=== PATIENT | male | born 1945 | race Caucasian/White ===

== ENCOUNTER 2017-07-04 18:10 | Inpatient (IN) | payer MEDICARE, BC ==
[~2017-07-04] VITALS: Ht 180.3 cm; Wt 99.8 kg
[2017-07-04 19:00] VITALS: BP 123/62
[2017-07-04] MEDS ORDERED: NON FORMULARY PATIENT HOME MED EA XX SCH (20:00)
[2017-07-04 20:09] VITALS: BP 123/62
[2017-07-04] MEDS ORDERED: OMEG-31 PO (20:20)
[2017-07-04] MEDS ORDERED: PHEN100C12 PO (20:20)
[2017-07-04] MEDS ORDERED: LACO100T2 PO (20:20)
[2017-07-04] MEDS ORDERED: MEMA10TA2 PO (20:20)
[2017-07-04] MEDS ORDERED: TELM40TA4 PO (20:20)
[2017-07-04] MEDS ORDERED: CYCL30DR OP (20:20)
[2017-07-04] MEDS ORDERED: ASCO-339 PO (20:20)
[2017-07-04] MEDS ORDERED: DOXY100C2 PO (20:20)
[2017-07-04] MEDS ORDERED: KEPP500 PO (20:20)
[2017-07-04] MEDS ORDERED: OMEP20CA10 PO (20:20)
[2017-07-04] MEDS ORDERED: DORZ1DRO5 OP (20:20)
[2017-07-04] MEDS ORDERED: PHENYTOIN SODIUM EXTENDED 100MG CAPSULE PO SCH (20:30)
[2017-07-05] MEDS ORDERED: OMEG-44 PO ×2 (04:20)
[2017-07-05] MEDS ORDERED: [UNRECOGNIZED DRUG - CODE] PO (04:43)
[2017-07-05] MEDS: OMEPRAZOLE 20MG CAPSULE EXTENDED RELEASE PO SCH (06:11)
[2017-07-05 06:38] LABS: BASOPHILS % 0.3 % (0.0-2.0); HEMATOCRIT. 41.9 % (42.0-52.0); HEMOGLOBIN. 14.9 g/dL (14.0-18.0); LYMPHOCYTES % 9.9 % (20.0-50.0); MEAN CORPUSCULAR HEMOGLOBIN 32.1 pg (28.0-32.0); MEAN CORPUSCULAR VOLUME 90.5 fL (80.0-94.0); MEAN PLATELET VOLUME 8.2 fl (7.4-10.4); MONOCYTES % 11.2 % (2.0-8.0); NEUTROPHILS % 75.6 % (40.0-76.0); PLATELET 254 x1000/uL (130-400); RED BLOOD CELL COUNT 4.63 mill/uL (4.7-6.1); RED CELL DISTRIBUTION WIDTH 12.9 % (11.6-14.6)
[2017-07-05 07:09] LABS: CHLORIDE 103 mEq/L (98-107)
[2017-07-05] MEDS ORDERED: LOTE5GEL OP (07:28)
[2017-07-05] MEDS ORDERED: NA PHOS,M-B/NA PHOS,DI-BA ENEMA 118ML PR NR (07:30)
[2017-07-05 07:58] LABS: CARBON DIOXIDE 26 mEq/L (21-32)
[2017-07-05 08:00] VITALS: BP 127/70
[2017-07-05] MEDS: ACETAMINOPHEN 325MG TABLET PO PRN (08:01)
[2017-07-05] MEDS ORDERED: NON FORMULARY PATIENT HOME MED EA XX SCH ×4 (09:00)
[2017-07-05] MEDS ORDERED: NA PHOS,M-B/NA PHOS,DI-BA ENEMA 118ML PR PRN (09:00)
[2017-07-05] MEDS ORDERED: FISH OIL/OMEGA-3 FATTY ACIDS 1000MG CAPSULE PO SCH (09:00)
[2017-07-05] MEDS ORDERED: DORZOLAM/TIMOLOL 2.23/0.68% OPHTH DROPS 10ML LEFTEYE SCH (09:00)
[2017-07-05] MEDS: MEMANTINE HCL 10MG TABLET PO SCH ×2 (10:05→21:09)
[2017-07-05] MEDS: ASCORBIC ACID 500 MG TABLET PO SCH (10:05)
[2017-07-05] MEDS: LACOSAMIDE 200 MG PO SCH ×2 (10:06→21:08)
[2017-07-05] MEDS: LOTEPREDNOL 0.5% OP SCH ×2 (10:06→18:00)
[2017-07-05] MEDS: FISH OIL/OMEGA-3 FATTY ACIDS 1000MG CAPSULE PO SCH ×2 (10:06→18:01)
[2017-07-05] MEDS: LEVETIRACETAM 500MG TABLET PO SCH ×2 (10:06→21:09)
[2017-07-05] MEDS: [UNRECOGNIZED DRUG - OTHER] PO SCH ×2 (10:07→21:08)
[2017-07-05] MEDS: CYCLOSPORINE 0.05% OP SCH ×2 (10:07→17:59)
[2017-07-05] MEDS: TELMISARTAN 40 MG PO SCH (10:07)
[2017-07-05] MEDS ORDERED: PNEUMOCOCCAL 23-VAL P-SAC VAC 0.5 ML IM ONE (12:30)
[2017-07-05] MEDS ORDERED: POTASSIUM CHLORIDE 20MEQ TABLET SR PO NR (12:30)
[2017-07-05] MEDS ORDERED: INFLUENZA VIRUS VACCINE 0.5ML SYR IM ONE (12:30)
[2017-07-05] MEDS ORDERED: DOCUSATE SODIUM 250MG CAPSULE PO NR (13:15)
[2017-07-05] MEDS ORDERED: ENOXAPARIN 40MG/0.4ML SYR SUBCUT NR (13:15)
[2017-07-05] MEDS ORDERED: PHENYTOIN SODIUM EXTENDED 100MG CAPSULE PO SCH (17:00)
[2017-07-05] MEDS: POTASSIUM CHLORIDE 20MEQ TABLET SR PO SCH (18:01)
[2017-07-05 19:04] LABS: CLARITY URINE CLEAR (CLEAR); COLOR URINE YELLOW (YELLOW); KETONES URINE NEGATIVE (NEGATIVE); LEUKOCYTE ESTERASE URINE NEGATIVE (NEGATIVE); NITRITE URINE NEGATIVE (NEGATIVE); OCCULT BLOOD URINE NEGATIVE (NEGATIVE); PROTEIN URINE NEGATIVE (NEGATIVE); SPECIFIC GRAVITY URINE 1.019 (1.005-1.030); UROBILINOGEN URINE 0.2 E.U./dL (0.2-1.0)
[2017-07-05 20:00] VITALS: BP 109/59
[2017-07-05] MEDS: PHENYTOIN SODIUM EXTENDED 100MG CAPSULE PO SCH (21:09)
[2017-07-05] MEDS: COSOPT OP SCH (21:48)
[2017-07-06] MEDS: POTASSIUM CHLORIDE 20MEQ TABLET SR PO SCH ×2 (06:10→18:07)
[2017-07-06] MEDS: OMEPRAZOLE 20MG CAPSULE EXTENDED RELEASE PO SCH (06:10)
[2017-07-06 06:25] LABS: BASOPHILS % 0.5 % (0.0-2.0); EOSINOPHILS % 3.1 % (0.0-5.0); HEMATOCRIT. 41.4 % (42.0-52.0); HEMOGLOBIN. 14.3 g/dL (14.0-18.0); LYMPHOCYTES % 12.4 % (20.0-50.0); MEAN CORPUSCULAR HEMOGLOBIN 31.4 pg (28.0-32.0); MEAN CORPUSCULAR VOLUME 90.8 fL (80.0-94.0); MEAN PLATELET VOLUME 7.9 fl (7.4-10.4); MONOCYTES % 10.1 % (2.0-8.0); NEUTROPHILS % 73.9 % (40.0-76.0); PLATELET 258 x1000/uL (130-400); RED BLOOD CELL COUNT 4.56 mill/uL (4.7-6.1)
[2017-07-06 08:00] VITALS: BP 124/80
[2017-07-06] MEDS: ENOXAPARIN 40MG/0.4ML SYR SUBCUT SCH (08:55)
[2017-07-06] MEDS: FISH OIL/OMEGA-3 FATTY ACIDS 1000MG CAPSULE PO SCH ×2 (08:55→18:07)
[2017-07-06] MEDS: MEMANTINE HCL 10MG TABLET PO SCH ×2 (08:56→21:26)
[2017-07-06] MEDS: LEVETIRACETAM 500MG TABLET PO SCH ×2 (08:56→21:26)
[2017-07-06] MEDS: DOCUSATE SODIUM 250MG CAPSULE PO SCH (08:56)
[2017-07-06] MEDS: COSOPT OP SCH ×2 (08:57→21:24)
[2017-07-06] MEDS: [UNRECOGNIZED DRUG - OTHER] PO SCH ×2 (08:58→21:28)
[2017-07-06] MEDS: LACOSAMIDE 200 MG PO SCH ×2 (08:59→21:28)
[2017-07-06] MEDS: LOTEPREDNOL 0.5% OP SCH (08:59)
[2017-07-06] MEDS: CYCLOSPORINE 0.05% OP SCH ×2 (08:59→18:07)
[2017-07-06] MEDS: TELMISARTAN 40 MG PO SCH (09:00)
[2017-07-06] MEDS: ASCORBIC ACID 500 MG TABLET PO SCH (09:01)
[2017-07-06 10:01] LABS: CARBON DIOXIDE 29 mEq/L (21-32); CHLORIDE 102 mEq/L (98-107)
[2017-07-06] MEDS: PHENYTOIN SODIUM EXTENDED 100MG CAPSULE PO SCH (18:07)
[2017-07-06 20:00] VITALS: BP 121/65
[2017-07-06] MEDS: LOTEMAX 0.5% OP SCH (21:34)
[2017-07-07] MEDS: OMEPRAZOLE 20MG CAPSULE EXTENDED RELEASE PO SCH (06:26)
[2017-07-07] MEDS: POTASSIUM CHLORIDE 20MEQ TABLET SR PO SCH ×2 (06:26→16:59)
[2017-07-07 08:00] VITALS: BP 135/78
[2017-07-07] MEDS: CYCLOSPORINE 0.05% OP SCH ×2 (09:08→17:02)
[2017-07-07] MEDS: COSOPT OP SCH ×2 (09:09→21:45)
[2017-07-07] MEDS: ENOXAPARIN 40MG/0.4ML SYR SUBCUT SCH (09:13)
[2017-07-07] MEDS: MEMANTINE HCL 10MG TABLET PO SCH ×2 (09:15→21:42)
[2017-07-07] MEDS: FISH OIL/OMEGA-3 FATTY ACIDS 1000MG CAPSULE PO SCH ×2 (09:15→16:59)
[2017-07-07] MEDS: ASCORBIC ACID 500 MG TABLET PO SCH (09:16)
[2017-07-07] MEDS: LACOSAMIDE 200 MG PO SCH ×2 (09:16→21:46)
[2017-07-07] MEDS: TELMISARTAN 40 MG PO SCH (09:20)
[2017-07-07] MEDS: [UNRECOGNIZED DRUG - OTHER] PO SCH ×2 (09:21→21:47)
[2017-07-07] MEDS: DOCUSATE SODIUM 250MG CAPSULE PO SCH (09:22)
[2017-07-07] MEDS: LEVETIRACETAM 500MG TABLET PO SCH ×2 (09:22→21:42)
[2017-07-07] MEDS: LOTEMAX 0.5% OP SCH ×2 (09:41→21:48)
[2017-07-07] MEDS: PHENYTOIN SODIUM EXTENDED 100MG CAPSULE PO SCH (16:59)
[2017-07-07 20:00] VITALS: BP 128/66
[2017-07-07 21:30] LABS: VITAMIN B12 SERUM 609 pg/mL (211-911)
[2017-07-08] MEDS: OMEPRAZOLE 20MG CAPSULE EXTENDED RELEASE PO SCH (05:46)
[2017-07-08] MEDS: POTASSIUM CHLORIDE 20MEQ TABLET SR PO SCH ×2 (05:47→18:21)
[2017-07-08] MEDS: ACETAMINOPHEN 325MG TABLET PO PRN (07:33)
[2017-07-08 08:00] VITALS: BP 117/72
[2017-07-08] MEDS: ASCORBIC ACID 500 MG TABLET PO SCH (09:39)
[2017-07-08] MEDS: FISH OIL/OMEGA-3 FATTY ACIDS 1000MG CAPSULE PO SCH ×2 (09:39→18:21)
[2017-07-08] MEDS: DOCUSATE SODIUM 250MG CAPSULE PO SCH (09:40)
[2017-07-08] MEDS: MEMANTINE HCL 10MG TABLET PO SCH ×2 (09:41→22:21)
[2017-07-08] MEDS: LEVETIRACETAM 500MG TABLET PO SCH ×2 (09:41→22:21)
[2017-07-08] MEDS: [UNRECOGNIZED DRUG - OTHER] PO SCH ×2 (09:41→22:20)
[2017-07-08] MEDS: TELMISARTAN 40 MG PO SCH (09:42)
[2017-07-08] MEDS: LACOSAMIDE 200 MG PO SCH ×2 (09:42→22:20)
[2017-07-08] MEDS: COSOPT OP SCH ×2 (09:43→22:19)
[2017-07-08] MEDS: ENOXAPARIN 40MG/0.4ML SYR SUBCUT SCH (09:45)
[2017-07-08] MEDS: CYCLOSPORINE 0.05% OP SCH ×2 (09:57→18:22)
[2017-07-08] MEDS: LOTEMAX 0.5% OP SCH ×2 (10:29→22:20)
[2017-07-08] MEDS: PHENYTOIN SODIUM EXTENDED 100MG CAPSULE PO SCH (18:21)
[2017-07-08 20:00] VITALS: BP 114/68
[2017-07-08] MEDS: ENOXAPARIN 30MG/0.3ML SYR SUBCUT SCH (22:24)
[2017-07-09] MEDS: POTASSIUM CHLORIDE 20MEQ TABLET SR PO SCH ×2 (06:30→17:21)
[2017-07-09] MEDS: OMEPRAZOLE 20MG CAPSULE EXTENDED RELEASE PO SCH (06:30)
[2017-07-09 08:00] VITALS: BP 108/64
[2017-07-09] MEDS: TELMISARTAN 40 MG PO SCH (08:08)
[2017-07-09] MEDS: DOCUSATE SODIUM 250MG CAPSULE PO SCH (09:06)
[2017-07-09] MEDS: ASCORBIC ACID 500 MG TABLET PO SCH (09:06)
[2017-07-09] MEDS: FISH OIL/OMEGA-3 FATTY ACIDS 1000MG CAPSULE PO SCH ×2 (09:06→16:06)
[2017-07-09] MEDS: MEMANTINE HCL 10MG TABLET PO SCH ×2 (09:06→21:52)
[2017-07-09] MEDS: LACOSAMIDE 200 MG PO SCH ×2 (09:07→21:50)
[2017-07-09] MEDS: LEVETIRACETAM 500MG TABLET PO SCH ×2 (09:07→21:52)
[2017-07-09] MEDS: [UNRECOGNIZED DRUG - OTHER] PO SCH ×2 (09:07→21:50)
[2017-07-09] MEDS: ENOXAPARIN 30MG/0.3ML SYR SUBCUT SCH ×2 (09:09→21:53)
[2017-07-09] MEDS: COSOPT OP SCH ×3 (09:10→21:49)
[2017-07-09] MEDS: CYCLOSPORINE 0.05% OP SCH ×2 (10:35→16:07)
[2017-07-09] MEDS: LOTEMAX 0.5% OP SCH ×2 (11:06→21:50)
[2017-07-09] MEDS: PHENYTOIN SODIUM EXTENDED 100MG CAPSULE PO SCH (16:06)
[2017-07-09 20:00] VITALS: BP 122/66
[2017-07-10] MEDS: POTASSIUM CHLORIDE 20MEQ TABLET SR PO SCH ×2 (06:15→17:53)
[2017-07-10] MEDS: OMEPRAZOLE 20MG CAPSULE EXTENDED RELEASE PO SCH (06:15)
[2017-07-10 08:00] VITALS: BP 108/67
[2017-07-10] MEDS: LOTEMAX 0.5% OP SCH ×2 (08:24→21:44)
[2017-07-10] MEDS: COSOPT OP SCH ×2 (08:25→21:42)
[2017-07-10] MEDS: CYCLOSPORINE 0.05% OP SCH ×2 (08:26→17:53)
[2017-07-10] MEDS: DOCUSATE SODIUM 250MG CAPSULE PO SCH (08:29)
[2017-07-10] MEDS: LEVETIRACETAM 500MG TABLET PO SCH ×2 (08:30→21:43)
[2017-07-10] MEDS: ASCORBIC ACID 500 MG TABLET PO SCH (08:30)
[2017-07-10] MEDS: [UNRECOGNIZED DRUG - OTHER] PO SCH ×2 (08:31→21:45)
[2017-07-10] MEDS: TELMISARTAN 40 MG PO SCH (08:31)
[2017-07-10] MEDS: LACOSAMIDE 200 MG PO SCH ×2 (08:32→21:45)
[2017-07-10] MEDS: ENOXAPARIN 30MG/0.3ML SYR SUBCUT SCH ×2 (08:32→21:44)
[2017-07-10] MEDS: MEMANTINE HCL 10MG TABLET PO SCH ×2 (08:35→21:43)
[2017-07-10] MEDS: FISH OIL/OMEGA-3 FATTY ACIDS 1000MG CAPSULE PO SCH ×2 (08:35→17:53)
[2017-07-10] MEDS: PHENYTOIN SODIUM EXTENDED 100MG CAPSULE PO SCH (17:53)
[2017-07-10 20:00] VITALS: BP 112/60
[2017-07-11] MEDS: OMEPRAZOLE 20MG CAPSULE EXTENDED RELEASE PO SCH (06:14)
[2017-07-11] MEDS: POTASSIUM CHLORIDE 20MEQ TABLET SR PO SCH ×2 (06:14→17:35)
[2017-07-11 08:00] VITALS: BP 131/67
[2017-07-11] MEDS: LEVETIRACETAM 500MG TABLET PO SCH ×2 (08:56→21:48)
[2017-07-11] MEDS: ASCORBIC ACID 500 MG TABLET PO SCH (08:56)
[2017-07-11] MEDS: DOCUSATE SODIUM 250MG CAPSULE PO SCH (08:56)
[2017-07-11] MEDS: MEMANTINE HCL 10MG TABLET PO SCH ×2 (08:56→21:48)
[2017-07-11] MEDS: FISH OIL/OMEGA-3 FATTY ACIDS 1000MG CAPSULE PO SCH ×2 (08:57→17:37)
[2017-07-11] MEDS: [UNRECOGNIZED DRUG - OTHER] PO SCH ×2 (08:58→21:49)
[2017-07-11] MEDS: LACOSAMIDE 200 MG PO SCH ×2 (08:58→21:49)
[2017-07-11] MEDS: COSOPT OP SCH ×2 (08:59→21:46)
[2017-07-11] MEDS: ENOXAPARIN 30MG/0.3ML SYR SUBCUT SCH ×2 (09:01→21:00)
[2017-07-11] MEDS: CYCLOSPORINE 0.05% OP SCH ×2 (09:03→17:35)
[2017-07-11] MEDS: LOTEMAX 0.5% OP SCH ×2 (09:03→21:53)
[2017-07-11] MEDS: TELMISARTAN 40 MG PO SCH (09:03)
[2017-07-11] MEDS: PHENYTOIN SODIUM EXTENDED 100MG CAPSULE PO SCH (17:37)
[2017-07-11 20:00] VITALS: BP 106/59
[2017-07-12] MEDS: POTASSIUM CHLORIDE 20MEQ TABLET SR PO SCH (06:00)
[2017-07-12] MEDS: OMEPRAZOLE 20MG CAPSULE EXTENDED RELEASE PO SCH (06:25)
[2017-07-12 07:48] LABS: CARBON DIOXIDE 30 mEq/L (21-32); CHLORIDE 103 mEq/L (98-107)
[2017-07-12] MEDS: TELMISARTAN 40 MG PO SCH (08:43)
[2017-07-12] MEDS: [UNRECOGNIZED DRUG - OTHER] PO SCH (08:43)
[2017-07-12] MEDS: LACOSAMIDE 200 MG PO SCH (08:44)
[2017-07-12] MEDS: COSOPT OP SCH (08:46)
[2017-07-12] MEDS: ENOXAPARIN 30MG/0.3ML SYR SUBCUT SCH (08:48)
[2017-07-12] MEDS: LEVETIRACETAM 500MG TABLET PO SCH (08:48)
[2017-07-12] MEDS: DOCUSATE SODIUM 250MG CAPSULE PO SCH (08:48)
[2017-07-12] MEDS: ASCORBIC ACID 500 MG TABLET PO SCH (08:48)
[2017-07-12] MEDS: FISH OIL/OMEGA-3 FATTY ACIDS 1000MG CAPSULE PO SCH (08:49)
[2017-07-12] MEDS: MEMANTINE HCL 10MG TABLET PO SCH (08:49)
[2017-07-12 08:51] VITALS: BP 112/66
[2017-07-12] MEDS: CYCLOSPORINE 0.05% OP SCH (09:10)
[2017-07-12] MEDS: LOTEMAX 0.5% OP SCH (09:55)
[2017-07-12 12:30] VITALS: BP 100/69
[2017-07-12 12:45] VITALS: BP 100/69
[2018-07-05] MEDS ORDERED: DOXYCYCLINE HYCLATE 100MG CAPSULE PO SCH (17:00)
== END 2017-07-12 13:35 | disposition home health service (06) | DRG 72 ==
PROVIDERS: ADMIT Psychiatry & Neurology Neurology; ATTEND Internal Medicine Geriatric Medicine
DX: G93.40 Encephalopathy, unspecified (principal); G62.9 Polyneuropathy, unspecified; D64.9 Anemia, unspecified; E66.01 Morbid (severe) obesity due to excess calories; S01.01XA Laceration without foreign body of scalp, initial encounter; D72.821 Monocytosis (symptomatic); H54.7 Unspecified visual loss; M21.371 Foot drop, right foot; R29.6 Repeated falls; R53.81 Other malaise; K59.00 Constipation, unspecified; K57.90 Diverticulosis of intestine, part unspecified, without perforation or abscess without bleeding; G83.11 Monoplegia of lower limb affecting right dominant side; G40.909 Epilepsy, unspecified, not intractable, without status epilepticus; F32.9 Major depressive disorder, single episode, unspecified; F03.90 Unspecified dementia, unspecified severity, without behavioral disturbance, psychotic disturbance, mood disturbance, and anxiety; E87.6 Hypokalemia; Z99.3 Dependence on wheelchair; Z68.30 Body mass index [BMI] 30.0-30.9, adult; Z79.899 Other long term (current) drug therapy; Z92.21 Personal history of antineoplastic chemotherapy
CPT/HCPCS: 36415; 73502; 74018; 80048; 80053; 80185; 81003; 82607; 83735; 84443; 85025; 87086; 90686; 90732; 92523; 93970; 97110; 97112; 97116; 97127; 97162; 97167; 97530; 97535; J1650

== ENCOUNTER → 2018-11-10 | Outpatient (CLI) | payer MEDICARE, BC ==
[~2018-11-10] MED LIST: ASCO-339 PO; CYCL30DR OP; DORZ1DRO5 OP; DOXY100C2 PO; KEPP500 PO; LACO100T2 PO; LOTE5GEL OP; MEMA10TA2 PO; OMEG-44 PO; OMEP20CA10 PO; PHEN100C12 PO; TELM40TA4 PO; [UNRECOGNIZED DRUG - CODE] PO
== END | disposition home or self-care (01) ==
LOC: CARD 08:50
PROVIDERS: ATTEND Psychiatry & Neurology Neurology
DX: G40.319 Generalized idiopathic epilepsy and epileptic syndromes, intractable, without status epilepticus (principal)

== ENCOUNTER 2022-12-24 14:46 | Inpatient (IN) | payer MEDICARE, BC ==
[~2022-12-24] VITALS: Ht 180.3 cm; Wt 81.6 kg
[~2022-12-24 14:46] MED LIST changes: +DORZ1DRO12 OP; -DORZ1DRO5 OP; -DOXY100C2 PO; +DOXY100C5 PO; -OMEP20CA10 PO; +OMEP20CA14 PO; -TELM40TA4 PO; +TELM40TA7 PO
[2022-12-24] MEDS ORDERED: LACTULOSE 20G/30ML UDC PO PRN (15:45)
[2022-12-24 16:00] VITALS: BP 133/78; PULSE 83; RESP 18; TEMP 97.4
[2022-12-24] MEDS ORDERED: OMEG100036 PO (16:58)
[2022-12-24] MEDS ORDERED: TOPI-255 PO (16:58)
[2022-12-24] MEDS ORDERED: CLON0.252 MT (16:58)
[2022-12-24] MEDS ORDERED: CALC-769 MT (16:58)
[2022-12-24] MEDS ORDERED: LACO200T2 PO (16:58)
[2022-12-24] MEDS ORDERED: CYCL30DR EACHEYE (16:58)
[2022-12-24] MEDS ORDERED: LOTE5GEL EACHEYE (16:58)
[2022-12-24] MEDS ORDERED: CHOL100036 PO (16:58)
[2022-12-24] MEDS ORDERED: MULT-1146 PO (16:58)
[2022-12-24] MEDS ORDERED: PHEN100C4 PO (16:58)
[2022-12-24] MEDS ORDERED: LEVE750T4 MT (16:58)
[2022-12-24] MEDS ORDERED: MEDICATION NOT ON FORMULARY EA (Clonazepam 1 TAB) MT PRN (17:30)
[2022-12-24] MEDS ORDERED: MEMANTINE HCL 10MG TABLET PO SCH (17:30)
[2022-12-24] MEDS ORDERED: CLONAZEPAM 0.25 MG TAB.RAPDIS PO PRN (18:30)
[2022-12-24] MEDS: TOPIRAMATE 25MG TABLET PO SCH (19:13)
[2022-12-24] MEDS ORDERED: PRIL20 PO (19:19)
[2022-12-24] MEDS ORDERED: CLON0.122 PO (19:20)
[2022-12-24] MEDS ORDERED: APIX5TAB PO (19:23)
[2022-12-24 20:00] VITALS: BP 144/78; PULSE 77; RESP 19; TEMP 97.7
[2022-12-24] MEDS ORDERED: DORZOLAM/TIMOLOL 2.23/0.68% OPHTH DROPS 10ML BOTHEYE SCH (20:00)
[2022-12-24] MEDS: PHENYTOIN SODIUM EXTENDED 100MG CAPSULE PO SCH (20:21)
[2022-12-24] MEDS: MEMANTINE HCL 10MG TABLET PO SCH (20:22)
[2022-12-24] MEDS: LEVETIRACETAM 500MG TABLET PO SCH (20:22)
[2022-12-24] MEDS: FISH OIL/OMEGA-3 FATTY ACIDS 1000MG CAPSULE PO SCH (20:23)
[2022-12-24] MEDS: LACOSAMIDE 100 MG TABLET PO SCH (21:29)
[2022-12-24 23:48] VITALS: BP 144/78; PULSE 77; RESP 19; TEMP 97.7
[2022-12-25 06:34] LABS: BASOPHILS % 0.4 % (0.0-2.0); EOSINOPHILS % 3.1 % (0.0-5.0); HEMATOCRIT. 35.2 % (42.0-52.0); HEMOGLOBIN. 12.4 g/dL (14.0-18.0); MEAN CORPUSCULAR VOLUME 93.2 fL (80.0-94.0); MEAN PLATELET VOLUME 8.1 fl (7.4-10.4); MONOCYTES % 10.9 % (2.0-8.0); NEUTROPHILS % 65.6 % (40.0-76.0); PLATELET 198 x1000/uL (130-400); RED BLOOD CELL COUNT 3.77 mill/uL (4.7-6.1); RED CELL DISTRIBUTION WIDTH 13.3 % (11.6-14.6)
[2022-12-25] MEDS: OMEPRAZOLE 20MG CAPSULE EXTENDED RELEASE PO SCH (06:55)
[2022-12-25 07:26] LABS: CHLORIDE 110 mEq/L (98-107)
[2022-12-25] MEDS ORDERED: POTASSIUM CHLORIDE 20MEQ TABLET SR PO NR (07:45)
[2022-12-25 08:00] VITALS: BP 120/63; PULSE 67; RESP 18; TEMP 97
[2022-12-25] MEDS: CHOLECALCIFEROL (D3) 1000 UNIT TABLET PO SCH (08:28)
[2022-12-25] MEDS: MEMANTINE HCL 10MG TABLET PO SCH ×2 (08:29→21:37)
[2022-12-25] MEDS: TOPIRAMATE 25MG TABLET PO SCH ×2 (08:29→21:42)
[2022-12-25] MEDS: PHENYTOIN SODIUM EXTENDED 100MG CAPSULE PO SCH ×2 (08:29→21:41)
[2022-12-25] MEDS: FISH OIL/OMEGA-3 FATTY ACIDS 1000MG CAPSULE PO SCH ×2 (08:30→21:41)
[2022-12-25] MEDS: ASCORBIC ACID 500 MG TABLET PO SCH (08:30)
[2022-12-25] MEDS: LACOSAMIDE 100 MG TABLET PO SCH ×2 (08:30→21:37)
[2022-12-25] MEDS: MULTIVITAMINS,THER W-MINERALS TABLET PO SCH (08:30)
[2022-12-25] MEDS: LOSARTAN POTASSIUM 50 MG TABLET PO SCH (08:31)
[2022-12-25] MEDS: LEVETIRACETAM 500MG TABLET PO SCH ×2 (08:31→21:37)
[2022-12-25 08:55] LABS: PHOSPHORUS 2.8 mg/dL (2.5-4.9)
[2022-12-25] MEDS ORDERED: FISH OIL PO SCH (09:00)
[2022-12-25] MEDS ORDERED: OMEGA PO SCH (09:00)
[2022-12-25] MEDS ORDERED: TELMISARTAN 40 MG PO SCH (09:00)
[2022-12-25] MEDS ORDERED: TOPIRAMATE 50 MG PO SCH (09:00)
[2022-12-25] MEDS ORDERED: [UNRECOGNIZED DRUG - OTHER] PO SCH (09:00)
[2022-12-25] MEDS ORDERED: MEDICATION NOT ON FORMULARY EA (Levetiracetam (Keppra) 2 TAB) MT SCH (09:00)
[2022-12-25] MEDS ORDERED: MEDICATION NOT ON FORMULARY EA (Cholecalciferol (Vitamin D3) (Vitamin D3) 1 CAP) PO SCH (09:00)
[2022-12-25] MEDS ORDERED: MEDICATION NOT ON FORMULARY EA (Multivitamin (Multi Vitamin Daily) 1 TAB) PO SCH (09:00)
[2022-12-25] MEDS ORDERED: MEDICATION NOT ON FORMULARY EA (Ascorbate Calcium (Vitamin C) 500 MG) PO SCH (09:00)
[2022-12-25] MEDS ORDERED: EPA PO SCH (09:00)
[2022-12-25] MEDS ORDERED: LACOSAMIDE 200 MG PO SCH (09:00)
[2022-12-25] MEDS ORDERED: DHA PO SCH (09:00)
[2022-12-25 11:38] LABS: CLARITY URINE TURBID (CLEAR); COLOR URINE YELLOW (YELLOW); KETONES URINE NEGATIVE (NEGATIVE); LEUKOCYTE ESTERASE URINE NEGATIVE (NEGATIVE); NITRITE URINE NEGATIVE (NEGATIVE); OCCULT BLOOD URINE NEGATIVE (NEGATIVE); PROTEIN URINE NEGATIVE (NEGATIVE); SPECIFIC GRAVITY URINE 1.012 (1.005-1.030); UROBILINOGEN URINE 0.2 E.U./dL (0.2-1.0)
[2022-12-25] MEDS ORDERED: *PATIENT'S OWN MEDICATION STORAGE XX SCH (15:00)
[2022-12-25] MEDS: ENOXAPARIN 40MG/0.4ML SYR SUBCUT SCH (16:00)
[2022-12-25] MEDS: EYE EMULSION EACHEYE SCH (17:00)
[2022-12-25] MEDS: RESTASIS 0.05% EACHEYE SCH (17:00)
[2022-12-25] MEDS ORDERED: APIXABAN 5 MG TABLET PO SCH (17:00)
[2022-12-25 20:10] VITALS: BP 129/67; PULSE 67; RESP 18; TEMP 98.1
[2022-12-25] MEDS: LOTEMAX 0.5% RIGHTEYE SCH (21:42)
[2022-12-26 07:02] LABS: CHLORIDE 110 mEq/L (98-107)
[2022-12-26] MEDS: OMEPRAZOLE 20MG CAPSULE EXTENDED RELEASE PO SCH ×2 (07:09→09:54)
[2022-12-26 08:00] VITALS: BP 125/80; PULSE 81; RESP 18; TEMP 97.3
[2022-12-26] MEDS: FISH OIL/OMEGA-3 FATTY ACIDS 1000MG CAPSULE PO SCH ×2 (09:53→20:58)
[2022-12-26] MEDS: LACOSAMIDE 100 MG TABLET PO SCH ×2 (09:53→20:59)
[2022-12-26] MEDS: ASCORBIC ACID 500 MG TABLET PO SCH (09:53)
[2022-12-26] MEDS: MULTIVITAMINS,THER W-MINERALS TABLET PO SCH (09:53)
[2022-12-26] MEDS: PHENYTOIN SODIUM EXTENDED 100MG CAPSULE PO SCH ×2 (09:53→20:58)
[2022-12-26] MEDS: MEMANTINE HCL 10MG TABLET PO SCH ×2 (09:53→20:58)
[2022-12-26] MEDS: TOPIRAMATE 25MG TABLET PO SCH ×2 (09:54→20:59)
[2022-12-26] MEDS: LEVETIRACETAM 500MG TABLET PO SCH ×2 (09:54→20:58)
[2022-12-26] MEDS: EYE EMULSION EACHEYE SCH ×2 (09:54→16:59)
[2022-12-26] MEDS: CHOLECALCIFEROL (D3) 1000 UNIT TABLET PO SCH (09:54)
[2022-12-26] MEDS: RESTASIS 0.05% EACHEYE SCH ×2 (09:54→16:59)
[2022-12-26] MEDS: LOSARTAN POTASSIUM 50 MG TABLET PO SCH (09:57)
[2022-12-26] MEDS: ENOXAPARIN 40MG/0.4ML SYR SUBCUT SCH (16:59)
[2022-12-26 20:00] VITALS: BP 134/52; PULSE 18; RESP 18; TEMP 96.9
[2022-12-26] MEDS: LOTEMAX 0.5% RIGHTEYE SCH (20:59)
[2022-12-26] MEDS: OXYBUTYNIN CHLORIDE 5MG TABLET PO SCH (21:04)
[2022-12-27 08:00] VITALS: BP 116/73; PULSE 64; RESP 18; TEMP 97.6
[2022-12-27] MEDS: LEVETIRACETAM 500MG TABLET PO SCH ×2 (08:04→20:58)
[2022-12-27] MEDS: FISH OIL/OMEGA-3 FATTY ACIDS 1000MG CAPSULE PO SCH ×2 (08:04→20:59)
[2022-12-27] MEDS: LOSARTAN POTASSIUM 50 MG TABLET PO SCH (08:04)
[2022-12-27] MEDS: TOPIRAMATE 25MG TABLET PO SCH ×2 (08:06→20:59)
[2022-12-27] MEDS: LACOSAMIDE 100 MG TABLET PO SCH ×2 (08:06→20:59)
[2022-12-27] MEDS: MULTIVITAMINS,THER W-MINERALS TABLET PO SCH (08:06)
[2022-12-27] MEDS: MEMANTINE HCL 10MG TABLET PO SCH ×2 (08:07→20:59)
[2022-12-27] MEDS: PHENYTOIN SODIUM EXTENDED 100MG CAPSULE PO SCH ×2 (08:07→20:59)
[2022-12-27] MEDS: EYE EMULSION EACHEYE SCH ×3 (08:08→21:03)
[2022-12-27] MEDS: RESTASIS 0.05% EACHEYE SCH ×3 (08:08→21:03)
[2022-12-27] MEDS: FAMOTIDINE 20MG TABLET PO SCH ×2 (08:35→20:59)
[2022-12-27] MEDS: CHOLECALCIFEROL (D3) 1000 UNIT TABLET PO SCH (08:35)
[2022-12-27] MEDS: ASCORBIC ACID 500 MG TABLET PO SCH (08:35)
[2022-12-27] MEDS ORDERED: CLONAZEPAM 0.25 MG PO PRN (15:00)
[2022-12-27] MEDS: ENOXAPARIN 40MG/0.4ML SYR SUBCUT SCH (16:09)
[2022-12-27 20:00] VITALS: BP 104/60; PULSE 73; RESP 18; TEMP 98.1
[2022-12-27] MEDS: OXYBUTYNIN CHLORIDE 5MG TABLET PO SCH (21:00)
[2022-12-27] MEDS: LOTEMAX 0.5% RIGHTEYE SCH (21:15)
[2022-12-28 08:00] VITALS: BP 119/71; PULSE 68; RESP 18; TEMP 97.1
[2022-12-28] MEDS: RESTASIS 0.05% EACHEYE SCH ×2 (09:00→21:04)
[2022-12-28] MEDS: EYE EMULSION EACHEYE SCH ×2 (09:00→21:04)
[2022-12-28] MEDS: FAMOTIDINE 20MG TABLET PO SCH ×2 (09:59→21:00)
[2022-12-28] MEDS: PHENYTOIN SODIUM EXTENDED 100MG CAPSULE PO SCH ×2 (09:59→20:50)
[2022-12-28] MEDS: TOPIRAMATE 25MG TABLET PO SCH ×2 (09:59→20:52)
[2022-12-28] MEDS: FISH OIL/OMEGA-3 FATTY ACIDS 1000MG CAPSULE PO SCH ×2 (09:59→20:50)
[2022-12-28] MEDS: LEVETIRACETAM 500MG TABLET PO SCH ×2 (10:03→20:52)
[2022-12-28] MEDS: LOSARTAN POTASSIUM 50 MG TABLET PO SCH (10:05)
[2022-12-28] MEDS: ASCORBIC ACID 500 MG TABLET PO SCH (10:05)
[2022-12-28] MEDS: LACOSAMIDE 100 MG TABLET PO SCH ×2 (10:06→20:50)
[2022-12-28] MEDS: MULTIVITAMINS,THER W-MINERALS TABLET PO SCH (10:08)
[2022-12-28] MEDS: MEMANTINE HCL 10MG TABLET PO SCH ×2 (10:08→20:51)
[2022-12-28] MEDS: CHOLECALCIFEROL (D3) 1000 UNIT TABLET PO SCH (10:08)
[2022-12-28] MEDS: ENOXAPARIN 40MG/0.4ML SYR SUBCUT SCH (16:00)
[2022-12-28 20:00] VITALS: BP 91/60; PULSE 72; RESP 17; TEMP 96.4
[2022-12-28] MEDS: OXYBUTYNIN CHLORIDE 5MG TABLET PO SCH (20:51)
[2022-12-28] MEDS: LOTEMAX 0.5% RIGHTEYE SCH (21:50)
[2022-12-29 08:00] VITALS: BP 122/74; PULSE 69; RESP 18; TEMP 96.4
[2022-12-29] MEDS: RESTASIS 0.05% EACHEYE SCH ×2 (09:00→21:09)
[2022-12-29] MEDS: PHENYTOIN SODIUM EXTENDED 100MG CAPSULE PO SCH ×2 (09:00→20:57)
[2022-12-29] MEDS: EYE EMULSION EACHEYE SCH ×2 (09:00→21:09)
[2022-12-29] MEDS: ASCORBIC ACID 500 MG TABLET PO SCH (09:00)
[2022-12-29] MEDS: FISH OIL/OMEGA-3 FATTY ACIDS 1000MG CAPSULE PO SCH ×2 (10:25→20:57)
[2022-12-29] MEDS: CHOLECALCIFEROL (D3) 1000 UNIT TABLET PO SCH (10:26)
[2022-12-29] MEDS: FAMOTIDINE 20MG TABLET PO SCH ×2 (10:26→20:58)
[2022-12-29] MEDS: MEMANTINE HCL 10MG TABLET PO SCH ×2 (10:26→20:57)
[2022-12-29] MEDS: LEVETIRACETAM 500MG TABLET PO SCH ×2 (10:26→20:58)
[2022-12-29] MEDS: TOPIRAMATE 25MG TABLET PO SCH ×2 (10:27→20:59)
[2022-12-29] MEDS: MULTIVITAMINS,THER W-MINERALS TABLET PO SCH (10:27)
[2022-12-29] MEDS: LACOSAMIDE 100 MG TABLET PO SCH ×2 (10:27→20:59)
[2022-12-29] MEDS: LOSARTAN POTASSIUM 50 MG TABLET PO SCH (10:27)
[2022-12-29] MEDS: ENOXAPARIN 40MG/0.4ML SYR SUBCUT SCH (17:56)
[2022-12-29 20:49] VITALS: BP 116/68; PULSE 74; RESP 18; TEMP 95.7
[2022-12-29] MEDS: OXYBUTYNIN CHLORIDE 5MG TABLET PO SCH (20:57)
[2022-12-29] MEDS: LOTEMAX 0.5% RIGHTEYE SCH (21:07)
[2022-12-30 08:00] VITALS: BP 108/63; PULSE 79; RESP 20; TEMP 97.2
[2022-12-30] MEDS: FAMOTIDINE 20MG TABLET PO SCH ×2 (08:26→21:51)
[2022-12-30] MEDS: LEVETIRACETAM 500MG TABLET PO SCH ×2 (08:26→21:51)
[2022-12-30] MEDS: ASCORBIC ACID 500 MG TABLET PO SCH (08:26)
[2022-12-30] MEDS: MEMANTINE HCL 10MG TABLET PO SCH ×2 (08:26→21:50)
[2022-12-30] MEDS: FISH OIL/OMEGA-3 FATTY ACIDS 1000MG CAPSULE PO SCH ×2 (08:26→21:50)
[2022-12-30] MEDS: MULTIVITAMINS,THER W-MINERALS TABLET PO SCH (08:26)
[2022-12-30] MEDS: LACOSAMIDE 100 MG TABLET PO SCH ×2 (08:29→21:40)
[2022-12-30] MEDS: TOPIRAMATE 25MG TABLET PO SCH ×2 (08:29→21:50)
[2022-12-30] MEDS: PHENYTOIN SODIUM EXTENDED 100MG CAPSULE PO SCH ×2 (08:29→21:49)
[2022-12-30] MEDS: CHOLECALCIFEROL (D3) 1000 UNIT TABLET PO SCH (08:29)
[2022-12-30] MEDS: LOSARTAN POTASSIUM 50 MG TABLET PO SCH (08:29)
[2022-12-30] MEDS: RESTASIS 0.05% EACHEYE SCH ×2 (08:35→21:40)
[2022-12-30] MEDS: EYE EMULSION EACHEYE SCH ×2 (08:35→21:40)
[2022-12-30] MEDS: ENOXAPARIN 40MG/0.4ML SYR SUBCUT SCH (16:00)
[2022-12-30 20:00] VITALS: BP 127/75; PULSE 71; RESP 18; TEMP 97.7
[2022-12-30] MEDS: LOTEMAX 0.5% RIGHTEYE SCH (21:40)
[2022-12-30] MEDS: OXYBUTYNIN CHLORIDE 5MG TABLET PO SCH (21:51)
[2022-12-31 08:00] VITALS: BP 105/61; PULSE 65; RESP 18; TEMP 97.1
[2022-12-31] MEDS: LEVETIRACETAM 500MG TABLET PO SCH ×2 (08:46→21:58)
[2022-12-31] MEDS: FAMOTIDINE 20MG TABLET PO SCH ×2 (08:47→21:58)
[2022-12-31] MEDS: MULTIVITAMINS,THER W-MINERALS TABLET PO SCH (08:47)
[2022-12-31] MEDS: ASCORBIC ACID 500 MG TABLET PO SCH (08:47)
[2022-12-31] MEDS: CHOLECALCIFEROL (D3) 1000 UNIT TABLET PO SCH (08:47)
[2022-12-31] MEDS: LOSARTAN POTASSIUM 50 MG TABLET PO SCH (08:47)
[2022-12-31] MEDS: TOPIRAMATE 25MG TABLET PO SCH ×2 (08:47→21:58)
[2022-12-31] MEDS: PHENYTOIN SODIUM EXTENDED 100MG CAPSULE PO SCH ×2 (08:47→21:58)
[2022-12-31] MEDS: LACOSAMIDE 100 MG TABLET PO SCH ×2 (08:48→21:59)
[2022-12-31] MEDS: FISH OIL/OMEGA-3 FATTY ACIDS 1000MG CAPSULE PO SCH ×2 (08:48→21:58)
[2022-12-31] MEDS: MEMANTINE HCL 10MG TABLET PO SCH ×2 (08:48→21:58)
[2022-12-31] MEDS: RESTASIS 0.05% EACHEYE SCH ×2 (08:52→21:56)
[2022-12-31] MEDS: EYE EMULSION EACHEYE SCH ×2 (08:52→21:56)
[2022-12-31] MEDS: ENOXAPARIN 40MG/0.4ML SYR SUBCUT SCH (16:01)
[2022-12-31 20:00] VITALS: BP 112/63; PULSE 77; RESP 18; TEMP 97.7
[2022-12-31] MEDS: OXYBUTYNIN CHLORIDE 5MG TABLET PO SCH (21:58)
[2022-12-31] MEDS: LOTEMAX 0.5% RIGHTEYE SCH (21:59)
[2023-01-01 08:00] VITALS: BP 130/72; PULSE 68; RESP 20; TEMP 97.1
[2023-01-01] MEDS: ASCORBIC ACID 500 MG TABLET PO SCH (08:46)
[2023-01-01] MEDS: FAMOTIDINE 20MG TABLET PO SCH ×2 (08:46→21:53)
[2023-01-01] MEDS: MULTIVITAMINS,THER W-MINERALS TABLET PO SCH (08:46)
[2023-01-01] MEDS: TOPIRAMATE 25MG TABLET PO SCH ×2 (08:46→21:52)
[2023-01-01] MEDS: LEVETIRACETAM 500MG TABLET PO SCH ×2 (08:46→21:53)
[2023-01-01] MEDS: PHENYTOIN SODIUM EXTENDED 100MG CAPSULE PO SCH ×2 (08:46→21:52)
[2023-01-01] MEDS: LOSARTAN POTASSIUM 50 MG TABLET PO SCH (08:46)
[2023-01-01] MEDS: FISH OIL/OMEGA-3 FATTY ACIDS 1000MG CAPSULE PO SCH ×2 (08:46→21:52)
[2023-01-01] MEDS: CHOLECALCIFEROL (D3) 1000 UNIT TABLET PO SCH (08:46)
[2023-01-01] MEDS: MEMANTINE HCL 10MG TABLET PO SCH ×2 (08:47→21:52)
[2023-01-01] MEDS: RESTASIS 0.05% EACHEYE SCH ×2 (08:47→21:53)
[2023-01-01] MEDS: LACOSAMIDE 100 MG TABLET PO SCH ×2 (08:47→21:53)
[2023-01-01] MEDS: EYE EMULSION EACHEYE SCH ×2 (08:47→21:53)
[2023-01-01] MEDS: ENOXAPARIN 40MG/0.4ML SYR SUBCUT SCH (15:05)
[2023-01-01] MEDS: OXYBUTYNIN CHLORIDE 5MG TABLET PO SCH (21:53)
[2023-01-01] MEDS: LOTEMAX 0.5% RIGHTEYE SCH (21:53)
[2023-01-01 22:58] VITALS: BP 106/61; PULSE 75; RESP 19; TEMP 96.3
[2023-01-02 08:00] VITALS: BP 118/66; PULSE 77; RESP 18; TEMP 97.3
[2023-01-02] MEDS: MEMANTINE HCL 10MG TABLET PO SCH (08:37)
[2023-01-02] MEDS: LACOSAMIDE 100 MG TABLET PO SCH (08:38)
[2023-01-02] MEDS: LEVETIRACETAM 500MG TABLET PO SCH (08:38)
[2023-01-02] MEDS: LOSARTAN POTASSIUM 50 MG TABLET PO SCH (08:39)
[2023-01-02] MEDS: FAMOTIDINE 20MG TABLET PO SCH (08:39)
[2023-01-02] MEDS: TOPIRAMATE 25MG TABLET PO SCH (08:40)
[2023-01-02] MEDS: ASCORBIC ACID 500 MG TABLET PO SCH (08:40)
[2023-01-02] MEDS: MULTIVITAMINS,THER W-MINERALS TABLET PO SCH (08:40)
[2023-01-02] MEDS: PHENYTOIN SODIUM EXTENDED 100MG CAPSULE PO SCH (08:41)
[2023-01-02] MEDS: CHOLECALCIFEROL (D3) 1000 UNIT TABLET PO SCH (08:41)
[2023-01-02] MEDS: FISH OIL/OMEGA-3 FATTY ACIDS 1000MG CAPSULE PO SCH (08:41)
[2023-01-02] MEDS: RESTASIS 0.05% EACHEYE SCH (08:44)
[2023-01-02] MEDS: EYE EMULSION EACHEYE SCH (08:44)
[2023-01-02 10:28] VITALS: BP 118/66; PULSE 77; TEMP 97.3; O2SAT 98
== END 2023-01-02 15:55 | disposition home or self-care (01) | DRG 71 ==
PROVIDERS: ADMIT Psychiatry & Neurology Neurology; ATTEND Hospitalist
PROC: 4A00X4Z Measurement of Central Nervous Electrical Activity, External Approach (ICD-10-PCS; principal; 2022-12-26)
DX: G93.40 Encephalopathy, unspecified (principal); C71.9 Malignant neoplasm of brain, unspecified; I50.30 Unspecified diastolic (congestive) heart failure; F03.93 Unspecified dementia, unspecified severity, with mood disturbance; F03.94 Unspecified dementia, unspecified severity, with anxiety; C61 Malignant neoplasm of prostate; E87.6 Hypokalemia; I34.1 Nonrheumatic mitral (valve) prolapse; M21.371 Foot drop, right foot; N39.41 Urge incontinence; R29.6 Repeated falls; R62.7 Adult failure to thrive; R60.9 Edema, unspecified; I11.0 Hypertensive heart disease with heart failure; Z85.46 Personal history of malignant neoplasm of prostate; Z85.841 Personal history of malignant neoplasm of brain; Z92.3 Personal history of irradiation; G40.909 Epilepsy, unspecified, not intractable, without status epilepticus; Z68.25 Body mass index [BMI] 25.0-25.9, adult; Z79.899 Other long term (current) drug therapy; H54.62 Unqualified visual loss, left eye, normal vision right eye; H91.90 Unspecified hearing loss, unspecified ear
CPT/HCPCS: 36415; 80048; 80053; 80339; 81003; 83735; 83880; 84100; 84153; 84443; 85025; 92523; 92610; 93306; 93308; 93970; 95816; 97110; 97112; 97116; 97150; 97163; 97166; 97530; 97535; J1650; G0103